=== PATIENT | male | born 1960 | race Caucasian/White ===

== ENCOUNTER 2016-09-07 20:13 | Emergency (ER) | payer BC ==
[~2016-09-07] VITALS: Ht 195.6 cm; Wt 113.4 kg
[2016-09-07 21:29] LABS: BASO # 0.1 x10^3/uL (0.0-0.2); BASO % 1 % (0-3); EOS % 2 % (0-3); HEMATOCRIT 46.7 % (39.0-53.0); HEMOGLOBIN 15.5 g/dL (13.0-17.5); LYMPH # 1.9 x10^3/uL (1.0-4.8); LYMPH % 16 % (24-48); MEAN CORPUSCULAR HEMOGLOBIN 30 pg (25-35); MEAN CORPUSCULAR HGB CONC 33 g/dL (31-37); MEAN CORPUSCULAR VOLUME 89 fL (79-100); MONO % 5 % (0-9); NEUT % 76 % (31-73); PLATELET COUNT 216 x10^3/uL (140-400); RED BLOOD COUNT 5.25 x10^6/uL (4.30-5.70); RED CELL DISTRIBUTION WIDTH 14.4 % (11.5-14.5); WHITE BLOOD COUNT 11.9 x10^3/uL (4.0-11.0)
[2016-09-07 21:42] LABS: ANION GAP 17 (6-14); BLOOD UREA NITROGEN 13 mg/dL (8-26); BUN/CREATININE RATIO 11 (6-20); CALCIUM 8.9 mg/dL (8.5-10.1); CARBON DIOXIDE 21 mmol/L (21-32); CHLORIDE 103 mmol/L (98-107); CREATININE 1.2 mg/dL (0.7-1.3); GFR 62.4; GLUCOSE 111 mg/dL (70-99); POTASSIUM 4.1 mmol/L (3.5-5.1); SODIUM 141 mmol/L (136-145)
[2016-09-07 21:52] LABS: ALBUMIN 4.3 g/dL (3.4-5.0); ALBUMIN/GLOBULIN RATIO 1.3 (1.0-1.7); TOTAL PROTEIN 7.6 g/dL (6.4-8.2)
[2016-09-07 21:53] LABS: ALK PHOS 140 U/L (46-116); ALT (SGPT) 24 U/L (16-63); AST (SGOT) 24 U/L (15-37); TOTAL BILIRUBIN 0.4 mg/dL (0.2-1.0)
[2016-09-07] MEDS ORDERED: FOSPHENYTOIN 1,000 MG in IV NORMAL SALINE 50ML 50 ML IV ONE (22:30)
[2016-09-07] MEDS ORDERED: DIVALPROEX DELAYED RELEASE 500 MG TABLET.DR. PO ONE (22:30)
--- NOTE | 2016-09-07 22:49 | RAD ---
PROCEDURE CT scan of the head without contrast 09/07/2016 HISTORY Seizure earlier today. TECHNIQUE Unenhanced contiguous, 5 millimeter axial sections were obtained through the head. One or more of the following individualized dose reduction techniques were utilized for this study: 1. Automated exposure control. 2. Adjustment of the mA and/or kV according to patient size. 3. Use of iterative reconstruction technique. FINDINGS The ventricles and sulci are within normal limits in size and configuration. No acute parenchymal abnormality is seen. No extra-axial fluid collection is seen. No skull fracture is noted. Mild mucosal thickening is seen involving the ethmoid air cells bilaterally. IMPRESSION No acute parenchymal abnormality is seen. Electronically signed by: Agustín Gimenez MD (Sep 07, 2016 22:48:16)
[2016-09-07 23:33] VITALS: BP 117/75
--- NOTE | 2016-09-07 23:33 | PHYS DOC ---
Past Medical History Past Medical History: CVA, High Cholesterol, Hypertension, Seizure Past Surgical History: Other Additional Past Surgical Histo: RIGHT SHOULDER Alcohol Use: None Drug Use: None Adult General Chief Complaint Chief Complaint: SEIZURE HPI HPI Patient is a 55 year old gentleman with history significant for seizure disorder in the past presents here today after having a seizure while he is playing poker at the [employer]. Patient reports his last seizure was approximately 10 years ago. Patient is on Dilantin and Depakote. Patient is unclear what his doses are. Patient reports that his neurologist told him that he will likely need to be on lifelong. Patient denies any fevers shakes chills nausea vomiting diarrhea chest pain shortness of breath cough cold or rhinorrhea. Patient denies any preictal symptoms. Patient denies any headache or double vision blurred vision or any neuro deficits prior to or after the seizure. Patient denies any history of diabetes liver longer kidney problems. Patient reports that he does have a history of hypertension and a stroke in the past. Patient has any prior surgeries. Patient reports he does smoke however no alcohol or drugs. Patient is not allergic to any medications. Patient's physical exam was unremarkable here in the ER. Patient is currently alert awake and oriented 3. Patient moving all extremities well.. Cranial nerves II-12 intact. Patient's GCS is 15. Patient's upper and lower extremities are 5 out of 5 and equal bilaterally. Patient has no sensory deficits. Patient has no gaze deficit. Patient's ER workup consisted of a CT scan that was unremarkable. Patient's labs were within normal limits. Patient's Dilantin and Depakote levels were both essentially 0. Patient is given a 1 g bolus of IV fosphenytoin as well as 500 by mouth Depakote. Review of Systems Review of Systems Constitutional: Denies fever or chills [] Eyes: Denies change in visual acuity, redness, or eye pain [] All other review systems are negative except as documented in the history of present illness. Current Medications Current Medications Current Medications Medications (Trade) Dose Ordered Sig/Andres Start Time Stop Time Status Last Admin Dose Admin Divalproex Sodium (Depakote) 500 mg 1X ONCE 09/07/16 22:30 09/07/16 22:31 DC 09/07/16 22:36 500 MG Fosphenytoin Sodium/Sodium Chloride (Cerebyx/Iv Sodium Chloride 0.9% 50ml) 70 ml @ 280 mls/hr 1X ONCE 09/07/16 22:30 09/07/16 22:44 DC 09/07/16 22:36 280 MLS/HR Allergies Allergies Allergies Uncoded Allergies Type Severity Reaction Last Updated Verified BEE STING Allergy Unknown 09/07/16 Physical Exam Physical Exam Constitutional: Well developed, well nourished, no acute distress, non-toxic appearance. [] HENT: Normocephalic, atraumatic, bilateral external ears normal, oropharynx moist, no oral exudates, nose normal. [] Eyes: PERRLA, EOMI, conjunctiva normal, no discharge. [] Neck: Normal range of motion, no tenderness, supple, no stridor. [] Cardiovascular:Heart rate regular rhythm, no murmur [] Lungs & Thorax: Bilateral breath sounds clear to auscultation [] Abdomen: Bowel sounds normal, soft, no tenderness, no masses, no pulsatile masses. [] Skin: Warm, dry, no erythema, no rash. [] Back: No tenderness, no CVA tenderness. [] Extremities: No tenderness, no cyanosis, no clubbing, ROM intact, no edema. [] Neurologic: Alert and oriented X 3, normal motor function, normal sensory function, no focal deficits noted. [] Psychologic: Affect normal, judgement normal, mood normal. [] Current Patient Data Vital Signs Vital Signs Date Time Temp Pulse Resp B/P Pulse Ox O2 Delivery O2 Flow Rate FiO2 09/07/16 21:11 78 21 127/77 95 Room Air 09/07/16 20:13 98.1 98.1 Lab Values Laboratory Tests Test 09/07/16 20:30 White Blood Count 11.9x10^3/uL (4.0-11.0) H Red Blood Count 5.25x10^6/uL (4.30-5.70) Hemoglobin 15.5g/dL (13.0-17.5) Hematocrit 46.7% (39.0-53.0) Mean Corpuscular Volume 89fL (79-100) Mean Corpuscular Hemoglobin 30pg (25-35) Mean Corpuscular Hemoglobin Concent 33g/dL (31-37) Red Cell Distribution Width 14.4% (11.5-14.5) Platelet Count 216x10^3/uL (140-400) Neutrophils (%) (Auto) 76% (31-73) H Lymphocytes (%) (Auto) 16% (24-48) L Monocytes (%) (Auto) 5% (0-9) Eosinophils (%) (Auto) 2% (0-3) Basophils (%) (Auto) 1% (0-3) Neutrophils # (Auto) 9.0x10^3uL (1.8-7.7) H Lymphocytes # (Auto) 1.9x10^3/uL (1.0-4.8) Monocytes # (Auto) 0.6x10^3/uL (0.0-1.1) Eosinophils # (Auto) 0.2x10^3/uL (0.0-0.7) Basophils # (Auto) 0.1x10^3/uL (0.0-0.2) Sodium Level 141mmol/L (136-145) Potassium Level 4.1mmol/L (3.5-5.1) Chloride Level 103mmol/L (98-107) Carbon Dioxide Level 21mmol/L (21-32) Anion Gap 17 (6-14) H Blood Urea Nitrogen 13mg/dL (8-26) Creatinine 1.2mg/dL (0.7-1.3) Estimated GFR (Cockcroft-Gault) 62.4 BUN/Creatinine Ratio 11 (6-20) Glucose Level 111mg/dL (70-99) H Calcium Level 8.9mg/dL (8.5-10.1) Total Bilirubin 0.4mg/dL (0.2-1.0) Aspartate Amino Transferase (AST) 24U/L (15-37) Alanine Aminotransferase (ALT) 24U/L (16-63) Alkaline Phosphatase 140U/L (46-116) H Troponin I Quantitative < 0.017ng/mL (0.000-0.055) Total Protein 7.6g/dL (6.4-8.2) Albumin 4.3g/dL (3.4-5.0) Albumin/Globulin Ratio 1.3 (1.0-1.7) Phenytoin (Dilantin) Level < 0.4mcg/mL (10.0-20.0) L Phenytoin Last Dose Date Unk Phenytoin Last Dose Time Unk Valproic Acid Level < 3mcg/mL (50-100) L Valproic Acid Last Dose Date Unk Valproic Acid Last Dose Time Unk Ethyl Alcohol Level < 10mg/dL (0-10) Laboratory Tests 09/07/16 20:30 Laboratory Tests 09/07/16 20:30 EKG EKG [] Radiology/Procedures Radiology/Procedures [] Course & Med Decision Making Course & Med Decision Making Pertinent Labs and Imaging studies reviewed. (See chart for details) [] Dragon Disclaimer Dragon Disclaimer This electronic medical record was generated, in whole or in part, using a voice recognition dictation system. Departure Departure Impression: Primary Impression: Seizure Disposition: HOME, SELF-CARE Condition: IMPROVED Referrals: NO PCP (PCP) Patient Instructions: Seizure, Adult Additional Instructions: Please make sure you take your medications as directed. Please make an appointment with your neurologist for repeat evaluation and to repeat her drug levels. LACEY PERDOMO MD Sep 07, 2016 23:33
--- NOTE | 2016-09-08 06:36 | EKG ---
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
== END 2016-09-07 23:35 | disposition home or self-care (01) ==
LOC: ER 20:13
DX: G40.909 Epilepsy, unspecified, not intractable, without status epilepticus (principal); I10 Essential (primary) hypertension; F17.200 Nicotine dependence, unspecified, uncomplicated; E78.00 Pure hypercholesterolemia, unspecified; Z86.73 Personal history of transient ischemic attack (TIA), and cerebral infarction without residual deficits; Z91.030 Bee allergy status
CPT/HCPCS: 36415; 70450; 80053; 80164; 80185; 84484; 85027; 93005; 96374; 99285; G0480; Q2009

== ENCOUNTER 2017-03-24 21:16 | Emergency (ER) | payer BC ==
[~2017-03-24] VITALS: Ht 185.4 cm; Wt 113.4 kg
--- NOTE | 2017-03-24 21:23 | PHYS DOC ---
Past Medical History Past Medical History: CVA, High Cholesterol, Hypertension, Seizure Past Surgical History: Other Additional Past Surgical Histo: RIGHT SHOULDER Smoking: Cigarettes Alcohol Use: None Drug Use: None Adult General HPI HPI Patient is a 56 year old male who presents with his . He was at the [facility] and had a seizure. helped him to the ground but he does have an abrasion to the back of his head. Does not remember striking his head. His D stick in route by EMS was 114. He is now confused post ictal but alert to person place and time. He doesn't remember the event however. He does member not eating much today lives at the [facility]. No alcohol use. His medications have been changed and he is on Keppra now. He denies missing medication doses. He is followed by his physician in [facility]. He was also seen September 07, 2016 ironically for seizure while at the [facility].Denies any recent illness or travel. Review of Systems Review of Systems Constitutional: Denies fever or chills Eyes: Denies change in visual acuity, redness, or eye pain HENT: Denies nasal congestion or sore throat Respiratory: Denies cough or shortness of breath Cardiovascular: No chest pain. GI: Denies abdominal pain, nausea, vomiting, bloody stools or diarrhea : Denies dysuria or hematuria Musculoskeletal: Denies back pain or joint pain Integument: Denies rash or skin lesions Neurologic: Denies headache, focal weakness or sensory changes. POS seizure. Allergies Allergies Allergies Uncoded Allergies Type Severity Reaction Last Updated Verified BEE STING Allergy Unknown 09/07/16 Physical Exam Physical Exam Constitutional: Well developed, well nourished, no acute distress, non-toxic appearance. HENT: Normocephalic, atraumatic, bilateral external ears normal, oropharynx moist, no oral exudates, nose normal. Abrasion noted to back of his head. Eyes: PERRLA, EOMI, conjunctiva normal, no discharge. Neck: Normal range of motion, no tenderness, supple, no stridor. No pain on palpation of cervical spine. No step-off or crepitance palpated. Cardiovascular:Heart rate regular rhythm, no murmur Lungs & Thorax: Bilateral breath sounds clear to auscultation Abdomen: Bowel sounds normal, soft, no tenderness, no masses, no pulsatile masses. Skin: Warm, dry, no erythema, no rash. Back: No tenderness, no CVA tenderness. Extremities: No tenderness, no cyanosis, no clubbing, ROM intact, no edema. Neurologic: Alert and oriented X 3, normal motor function, normal sensory function, no focal deficits noted. He does not remember the recent event or seizure. No urinary incontinence. Current Patient Data Vital Signs Vital Signs Date Time Temp Pulse Resp B/P (MAP) Pulse Ox O2 Delivery O2 Flow Rate FiO2 03/24/17 21:16 98.1 99 20 117/67 (84) 95 Room Air 98.1 Lab Values Laboratory Tests Test 03/24/17 21:26 White Blood Count 13.9 x10^3/uL (4.0-11.0) H Red Blood Count 5.11 x10^6/uL (4.30-5.70) Hemoglobin 15.6 g/dL (13.0-17.5) Hematocrit 46.6 % (39.0-53.0) Mean Corpuscular Volume 91 fL (79-100) Mean Corpuscular Hemoglobin 31 pg (25-35) Mean Corpuscular Hemoglobin Concent 34 g/dL (31-37) Red Cell Distribution Width 13.6 % (11.5-14.5) Platelet Count 227 x10^3/uL (140-400) Neutrophils (%) (Auto) 69 % (31-73) Lymphocytes (%) (Auto) 22 % (24-48) L Monocytes (%) (Auto) 5 % (0-9) Eosinophils (%) (Auto) 3 % (0-3) Basophils (%) (Auto) 1 % (0-3) Neutrophils # (Auto) 9.6 x10^3uL (1.8-7.7) H Lymphocytes # (Auto) 3.0 x10^3/uL (1.0-4.8) Monocytes # (Auto) 0.8 x10^3/uL (0.0-1.1) Eosinophils # (Auto) 0.4 x10^3/uL (0.0-0.7) Basophils # (Auto) 0.2 x10^3/uL (0.0-0.2) Prothrombin Time 13.0 SEC (11.7-14.0) Prothrombin Time INR 1.0 (0.8-1.1) PTT 26 SEC (24-38) Sodium Level 138 mmol/L (136-145) Potassium Level 3.5 mmol/L (3.5-5.1) Chloride Level 102 mmol/L (98-107) Carbon Dioxide Level 21 mmol/L (21-32) Anion Gap 15 (6-14) H Blood Urea Nitrogen 13 mg/dL (8-26) Creatinine 1.2 mg/dL (0.7-1.3) Estimated GFR (Cockcroft-Gault) 62.2 BUN/Creatinine Ratio 11 (6-20) Glucose Level 119 mg/dL (70-99) H Calcium Level 8.7 mg/dL (8.5-10.1) Total Bilirubin 0.4 mg/dL (0.2-1.0) Aspartate Amino Transferase (AST) 24 U/L (15-37) Alanine Aminotransferase (ALT) 33 U/L (16-63) Alkaline Phosphatase 137 U/L (46-116) H Total Protein 7.3 g/dL (6.4-8.2) Albumin 4.1 g/dL (3.4-5.0) Albumin/Globulin Ratio 1.3 (1.0-1.7) Laboratory Tests 03/24/17 21:26 Laboratory Tests 03/24/17 21:26 EKG EKG EKG interpreted by myself at 2142 PM with SR, rate 84, LAD, LAFB. no STEMI. Radiology/Procedures Radiology/Procedures [facility] [address] [place] [address] IMAGING REPORT Signed PATIENT: COLTON ADAMS ACCOUNT: [id number] : 1960 LOCATION: ER AGE: 56 SEX: M EXAM STATUS: REG ER ORD. PHYSICIAN: STUART FAUSTIN MD REASON: seizure and fell ; hit back of head (known sz disorfer) PROCEDURE: CT HEAD AND CERVICAL SPINE WO PQRS Compliance Statement: One or more of the following individualized dose reduction techniques were utilized for this examination: 1. Automated exposure control 2. Adjustment of the mA and/or kV according to patient size 3. Use of iterative reconstruction technique CT head and cervical spine without contrast 03/24/2017 9:21 PM INDICATION: Seizure, fall COMPARISON: Head CT September 07, 2016 TECHNIQUE: Multiple axial CT images of the head were obtained from skull base through the vertex without intravenous contrast. Multiple axial CT images of the cervical spine were obtained without intravenous contrast. Coronal and sagittal reformats are provided. FINDINGS: Head: Ventricles, sulci and basal cisterns are within normal limits. Remote lacunar infarct in the right cerebellum. There is no hydrocephalus. Schmitt-white matter differentiation is normal. There is no acute intracranial hemorrhage. There is no mass, mass effect or midline shift. Posterior fossa is normal in appearance. Visualized portions of the orbits are normal. Paranasal sinuses are well aerated. Mastoid air cells are well aerated. Scalp and calvaria are normal. Cervical spine: Alignment of the cervical spine is normal. Skull base is intact. Craniocervical junction is normal in appearance. Atlantoaxial articulation is normal. Vertebral body heights are maintained without evidence for acute fracture. Facet joints are within normal limits. No significant osseous neural foraminal stenosis. No significant osseous spinal canal stenosis. Transverse foramen are intact. There is no prevertebral soft tissue swelling. Thyroid gland is normal in appearance. Visualized portions of the lung apices are normal without evidence for suspicious pulmonary nodule or infiltrate. IMPRESSION: 1. No acute intracranial hemorrhage. 2. No acute fracture or malalignment of the cervical spine. Electronically signed by: Jesus Dee MD (03/24/2017 9:58 PM) [facility] DICTATED and SIGNED BY: JESUS DEE MD DATE: 03/24/172155 CC: STUART FAUSTIN MD; NO PCP ~ Course & Med Decision Making Course & Med Decision Making Met patient in room 19 upon arrival by EMS. No seizure activity. He is alert but confused re: seizure. CT obtained due to abrasion on head noted. At 2205 PM : CT report negative. Patient observed for further seizure activity. aT 2225 pm : Patient is now fully alert. Had no further seizure activity. Feels comfortable going home. He's had another episode making this [place] I feel probably is due to all of the lights as he sits and plays the slots. Discussing this with the patient's is concurred that he probably needs to avoid the casinos in the future. To give him 1 dose of Ativan by mouth to cover him for tonight. He'll take his evening dose of seizure medications when he gets home. No driving obviously until reevaluated by his neurologist. Esthela Disclaimer Yovanion Disclaimer This electronic medical record was generated, in whole or in part, using a voice recognition dictation system. Departure Departure Impression: Primary Impression: Seizure Disposition: HOME, SELF-CARE Condition: GOOD Referrals: NO PCP (PCP) Patient Instructions: Seizure, Adult Additional Instructions: I BELIEVE PLAYING THE SLOT MACHINES IS CAUSING SEIZURES. I WOULD ADVISE YOU TO AVOID THE CASINO IN THE FUTURE. NO DRIVING. STUART FAUSTIN MD Mar 24, 2017 21:23
[2017-03-24 21:33] LABS: BASO # 0.2 x10^3/uL (0.0-0.2); BASO % 1 % (0-3); EOS % 3 % (0-3); HEMATOCRIT 46.6 % (39.0-53.0); HEMOGLOBIN 15.6 g/dL (13.0-17.5); LYMPH % 22 % (24-48); MEAN CORPUSCULAR HEMOGLOBIN 31 pg (25-35); MEAN CORPUSCULAR HGB CONC 34 g/dL (31-37); MEAN CORPUSCULAR VOLUME 91 fL (79-100); MONO % 5 % (0-9); NEUT % 69 % (31-73); PLATELET COUNT 227 x10^3/uL (140-400); RED BLOOD COUNT 5.11 x10^6/uL (4.30-5.70); RED CELL DISTRIBUTION WIDTH 13.6 % (11.5-14.5); WHITE BLOOD COUNT 13.9 x10^3/uL (4.0-11.0)
[2017-03-24 21:47] LABS: CALCIUM 8.7 mg/dL (8.5-10.1); CREATININE 1.2 mg/dL (0.7-1.3); GFR 62.2; POTASSIUM 3.5 mmol/L (3.5-5.1)
[2017-03-24 21:53] LABS: ALBUMIN 4.1 g/dL (3.4-5.0); ALBUMIN/GLOBULIN RATIO 1.3 (1.0-1.7); TOTAL BILIRUBIN 0.4 mg/dL (0.2-1.0); TOTAL PROTEIN 7.3 g/dL (6.4-8.2)
--- NOTE | 2017-03-24 22:02 | RAD ---
PQRS Compliance Statement: One or more of the following individualized dose reduction techniques were utilized for this examination: 1. Automated exposure control 2. Adjustment of the mA and/or kV according to patient size 3. Use of iterative reconstruction technique CT head and cervical spine without contrast 03/24/2017 9:21 PM INDICATION: Seizure, fall COMPARISON: Head CT September 07, 2016 TECHNIQUE: Multiple axial CT images of the head were obtained from skull base through the vertex without intravenous contrast. Multiple axial CT images of the cervical spine were obtained without intravenous contrast. Coronal and sagittal reformats are provided. FINDINGS: Head: Ventricles, sulci and basal cisterns are within normal limits. Remote lacunar infarct in the right cerebellum. There is no hydrocephalus. Schmitt-white matter differentiation is normal. There is no acute intracranial hemorrhage. There is no mass, mass effect or midline shift. Posterior fossa is normal in appearance. Visualized portions of the orbits are normal. Paranasal sinuses are well aerated. Mastoid air cells are well aerated. Scalp and calvaria are normal. Cervical spine: Alignment of the cervical spine is normal. Skull base is intact. Craniocervical junction is normal in appearance. Atlantoaxial articulation is normal. Vertebral body heights are maintained without evidence for acute fracture. Facet joints are within normal limits. No significant osseous neural foraminal stenosis. No significant osseous spinal canal stenosis. Transverse foramen are intact. There is no prevertebral soft tissue swelling. Thyroid gland is normal in appearance. Visualized portions of the lung apices are normal without evidence for suspicious pulmonary nodule or infiltrate. IMPRESSION: 1. No acute intracranial hemorrhage. 2. No acute fracture or malalignment of the cervical spine. Electronically signed by: Liliya Licona MD (03/24/2017 9:58 PM) [facility]
[2017-03-24 22:30] VITALS: BP 124/83
[2017-03-24] MEDS ORDERED: LORazepam 1 MG TABLET PO ONE (23:00)
--- NOTE | 2017-03-25 07:44 | EKG ---
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
== END 2017-03-24 22:30 | disposition home or self-care (01) ==
LOC: ER 21:16
DX: R56.9 Unspecified convulsions (principal); S00.01XA Abrasion of scalp, initial encounter; E78.00 Pure hypercholesterolemia, unspecified; I10 Essential (primary) hypertension; F17.210 Nicotine dependence, cigarettes, uncomplicated; Z86.73 Personal history of transient ischemic attack (TIA), and cerebral infarction without residual deficits; Z91.030 Bee allergy status; X58.XXXA Exposure to other specified factors, initial encounter; Y93.89 Activity, other specified; Y92.89 Other specified places as the place of occurrence of the external cause; Y99.8 Other external cause status
CPT/HCPCS: 36415; 70450; 72125; 80053; 85025; 85610; 85730; 93005; 99285-25